=== PATIENT | male | born 1995 | race Caucasian/White ===

== ENCOUNTER 2019-11-03 16:48 | Emergency (ER) | payer BC, OTHER ==
[2019-11-03] MEDS ORDERED: Lidocaine 1% 10 ML MDV INJECT ONE (17:14)
[2019-11-03] MEDS ORDERED: Diphtheria,Pertussis(Acell),Tetanus Vaccine 0.5 ML Syringe IM ONE (17:23)
--- NOTE | 2019-11-03 18:48 | EDM.PDOC ---
ED HPI GENERAL MEDICAL PROBLEM - General Chief Complaint: Laceration Stated Complaint: LEG LAC Time Seen by Provider: 11/03/19 17:06 Source of Information: Reports: Patient History Limitations: Reports: No Limitations - History of Present Illness INITIAL COMMENTS - FREE TEXT/NARRATIVE: Patient is a 24-year-old male who presents with complaints of 2 lacerations to his leg directly above the knee. States he was working with a chainsaw and the chain came off and hit him in the leg. He is not sure when his last tetanus vaccination was. Left Upper Leg Pain Score (Numeric/FACES): 2 - Related Data Allergies Allergy/AdvReac Type Severity Reaction Status Date / Time No Known Allergies Allergy Verified 11/03/19 17:07 Home Meds: Home Meds Lisdexamfetamine [Vyvanse] 50 mg PO DAILY 11/03/19 [History] Past Medical History Psychiatric History: Reports: ADHD - Past Surgical History Musculoskeletal Surgical History: Reports: Arthroscopic Knee Social & Family History - Tobacco Use Smoking Status *Q: Current Every Day Smoker Years of Tobacco use: 1 Packs/Tins Daily: 0.1 - Caffeine Use Caffeine Use: Reports: Coffee, Soda - Recreational Drug Use Recreational Drug Use: No ED ROS GENERAL - Review of Systems Review Of Systems: Comprehensive ROS is negative, except as noted in HPI. ED EXAM, SKIN/RASH Exam: See Below Exam Limited By: No Limitations General Appearance: Alert, WD/WN, No Apparent Distress Respiratory/Chest: No Respiratory Distress, Lungs Clear, Normal Breath Sounds, No Accessory Muscle Use, Chest Non-Tender Cardiovascular: Normal Peripheral Pulses, Regular Rate, Rhythm, No Edema, No Gallop, No JVD, No Murmur, No Rub Skin: Other (2 cm and 1.5 cm parallel lacerations directly above the left knee. No active bleeding. Wounds are slightly gaping.) ED SKIN PROCEDURES - Laceration/Wound Repair Left Upper Leg Appearance: Subcutaneous Anesthetic Type: Local Local Anesthesia - Lidocaine (Xylocaine): 1% Plain Local Anesthetic Volume: 2cc Skin Prep: Chlorhexidine (Hibiciens), Providone-Iodine (Betadine), Saline Exploration/Debridement/Repair: Wound Explored, No Foreign Material Found Closed with: Sutures Lac/Wound length In cm: 3.5 (Total length of 2 lacerations) Suture Size: 4-0 # of Sutures: 5 (Total sutures between 2 lacerations. 3 sutures in the 2 cm laceration and 2 sutures in the 1.5 cm laceration.) Suture Type: Nylon Sterile Dressing Applied: Nurse Tetanus Status Addressed: Yes Complications: No Course - Vital Signs Last Recorded V/S: Last Vital Signs Temp 98.6 F 11/03/19 17:10 Pulse 54 L 11/03/19 17:10 Resp 20 11/03/19 17:10 BP 108/52 L 11/03/19 17:10 Pulse Ox 97 11/03/19 17:10 - Orders/Labs/Meds Orders: Active Orders 24 hr Category Date Time Status Vaccines to be Administered [RC] PER UNIT ROUTINE Care 11/03/19 17:24 Active Meds: Medications Discontinued Medications Generic Name Dose Route Start Last Admin Trade Name Miranda PRN Reason Stop Dose Admin Diphtheria/Tetanus/Acell Pertussis 0.5 ml 11/03/19 17:23 11/03/19 18:11 Adacel IM 11/03/19 17:24 0.5 ml .ONCE ONE Administration Lidocaine HCl 10 ml 11/03/19 17:14 11/03/19 18:11 Xylocaine 1% INJECT 11/03/19 17:15 10 ml ONETIME ONE Administration Departure - Departure Time of Disposition: 18:45 Disposition: Home, Self-Care 01 Condition: Good Clinical Impression: Laceration - Discharge Information *PRESCRIPTION DRUG MONITORING PROGRAM REVIEWED*: No *COPY OF PRESCRIPTION DRUG MONITORING REPORT IN PATIENT NOELLE: No Instructions: Laceration Care, Adult, [id number] Referrals: PCP,None [Primary Care Provider] - Additional Instructions: You were seen in the emergency department today for 2 lacerations to your left leg. The wounds were cleansed and closed with a total of 5 sutures. These should stay intact for 7 days. After that time they may be removed in the clinic by a nurse. Keep the wound clean and dry. Wash with normal soap and water twice daily. Do not submerge the wound in water. Watch for signs of infection including increased redness, swelling, or purulent drainage. If these should occur, you should be seen either in the clinic or in the emergency department as antibiotic treatment may be needed. Your tetanus vaccination was updated today. Return to the ER as needed. Sepsis Event Note (ED) - Evaluation Sepsis Screening Result: No Definite Risk - Focused Exam Vital Signs: Vital Signs Temp Pulse Resp BP Pulse Ox 11/03/19 17:10 98.6 F 54 L 20 108/52 L 97 - My Orders Last 24 Hours: My Active Orders 11/03/19 17:24 Vaccines to be Administered [RC] PER UNIT ROUTINE - Assessment/Plan Last 24 Hours: My Active Orders 11/03/19 17:24 Vaccines to be Administered [RC] PER UNIT ROUTINE
== END 2019-11-03 19:06 | disposition home or self-care (01) ==
LOC: JD.ED 16:48
DX: S81.012A Laceration without foreign body, left knee, initial encounter (principal); F17.210 Nicotine dependence, cigarettes, uncomplicated; Z23 Encounter for immunization; W22.8XXA Striking against or struck by other objects, initial encounter
CPT/HCPCS: 12002; 90471; 90715; 99282; J2001

== ENCOUNTER 2020-09-24 15:31 | Day surgery (SDC) | payer BC, OTHER ==
[2020-09-24] MEDS ORDERED: HYDROmorphone 0.5 MG/0.5 ML Syringe IVPUSH ONE (15:55)
[2020-09-24] MEDS ORDERED: Glucagon,Human Recombinant 1 MG Vial IVPUSH ONE (15:56)
[2020-09-24] MEDS ORDERED: Metoclopramide 10 MG/2 ML SDV IVPUSH ONE (15:56)
--- NOTE | 2020-09-24 15:59 | EDM.PDOC ---
ED HPI GENERAL MEDICAL PROBLEM - General Chief Complaint: ENT Problem Stated Complaint: FB STUCK IN PT THROAT Time Seen by Provider: 09/24/20 15:41 Source of Information: Reports: Patient, Family (mother) History Limitations: Reports: No Limitations - History of Present Illness INITIAL COMMENTS - FREE TEXT/NARRATIVE: 25-year-old male presents he is spitting up all of his saliva since time of injury without blood. Still has pain with attempt to swallow. To the ED with a food bolus stuck in his upper esophagus. He states is a piece of steak. It got stuck around 1330 hrs. today. Patient has a similar occurrence on Mother's Day this year when he was down and [place] and had a female surgeon have to partially remove it and pushed the rest of it down into his stomach. He was told he has some form of polyp or diverticulum at the junction but between his stomach and esophagus i.e. GE junction. He is not aware that he has any problems with reflux esophagitis. He usually cuts his meat up into small pieces and is careful how he eats and drinks. He has had no alcohol today. Onset: Today, Sudden Onset Date: 09/24/20 Onset Time: 13:30 Duration: Hour(s):, Constant Location: Reports: Neck (Food bolus stuck in his upper throat lower neck behind the sternal notch) Quality: Reports: Ache, Pressure Severity: Moderate Improves with: Reports: Rest Worsens with: Reports: Other Context: Reports: Other (Continues occurrence of upper esophageal obstruction by piece of steak while eating at dinnertime today.). Denies: Activity, Exercise (Between a drink or swallow his saliva), Lifting, Sick Contact, Trauma Associated Symptoms: Reports: No Other Symptoms Treatments PEARLER: Reports: Other (see below) (Things will go down.) - Related Data Allergies Allergy/AdvReac Type Severity Reaction Status Date / Time No Known Allergies Allergy Verified 09/24/20 15:38 Home Meds: Home Meds Lisdexamfetamine [Vyvanse] 60 mg PO DAILY 11/03/19 [History] Past Medical History Gastrointestinal History: Reports: Other (See Below) (Patient had an impacted esophageal foreign body in the same area i.e. just below the sternal notch on Mother's Day of this year when he was in [place]. He required EGD at that time to push it down into his stomach) Psychiatric History: Reports: ADHD - Past Surgical History GI Surgical History: Reports: EGD Musculoskeletal Surgical History: Reports: Arthroscopic Knee Social & Family History - Caffeine Use Caffeine Use: Reports: None - Recreational Drug Use Recreational Drug Use: No - Living Situation & Occupation Living situation: Reports: Single Occupation: Employed ED ROS ENT - Review of Systems Review Of Systems: See Below Constitutional: Reports: No Symptoms HEENT: Reports: No Symptoms Respiratory: Reports: No Symptoms Cardiovascular: Reports: No Symptoms Endocrine: Reports: No Symptoms GI/Abdominal: Reports: No Symptoms : Reports: No Symptoms Musculoskeletal: Reports: Back Pain Skin: Reports: No Symptoms (Vaginal low back pain) Neurological: Reports: No Symptoms Psychiatric: Reports: Other (History of her chronic attention deficit disorder with hyperactivity syndrome) Hematologic/Lymphatic: Reports: No Symptoms ED EXAM, ENT - Physical Exam Exam: See Below Exam Limited By: No Limitations General Appearance: Alert, WD/WN, Mild Distress, Other (Temperature is 36.2. Heart rate 55 and sinus respiratory 16 with O2 sats of 98% room air. BP 1 3989) Eye Exam: Bilateral Eye: Normal Inspection (No scleral icterus no blepharal pallor), PERRL Mouth/Throat: Normal Inspection, Normal Gums, Normal Teeth Head: Atraumatic, Normocephalic Neck: Normal Inspection, Supple, Non-Tender, Full Range of Motion. No: Lymphadenopathy (L), Lymphadenopathy (R) Respiratory/Chest: No Respiratory Distress, Lungs Clear, Normal Breath Sounds, No Accessory Muscle Use Cardiovascular: Normal Peripheral Pulses, Regular Rate, Rhythm, No Edema, No Gallop, No Murmur, No Rub GI/Abdominal: Normal Bowel Sounds, Soft, Non-Tender, No Organomegaly, No Abnormal Bruit, No Mass, Pelvis Stable Back: Normal Inspection, Full Range of Motion. No: CVA Tenderness (L), CVA Tenderness (R) Extremities: Normal Inspection, Normal Range of Motion, Non-Tender, No Pedal Edema Neurological: Alert, Oriented, CN II-XII Intact, Normal Cognition Psychiatric: Normal Affect, Normal Mood Skin: Warm, Dry, Intact, Normal Color, No Rash Course - Vital Signs Last Recorded V/S: Last Vital Signs Temp 36.2 C 09/24/20 15:36 Pulse 55 L 09/24/20 15:36 Resp 16 07/12/21 15:36 BP 139/89 09/24/20 15:36 Pulse Ox 98 09/24/20 15:36 - Orders/Labs/Meds Orders: Active Orders 24 hr Category Date Time Status Dextrose 5%-0.9% NaCl [Dextrose 5%-Normal Saline] 1,000 Med 09/24/20 16:00 Active ml IV ASDIRECTED Medication Orders Dextrose/Sodium Chloride (Dextrose 5%-Normal Saline) 1,000 mls @ 200 mls/hr IV ASDIRECTED [facility] Last Admin: 09/24/20 16:17 Dose: 200 mls/hr Documented by: MELISSA Labs: Laboratory Tests 09/24/20 Range/Units 16:20 SARS-CoV-2 RNA (JOHN) Negative (NEGATIVE) Meds: Medications Generic Name Dose Route Start Last Admin Trade Name Freq PRN Reason Stop Dose Admin Dextrose/Sodium Chloride 1,000 mls @ 200 mls/hr 09/24/20 16:00 09/24/20 16:17 Dextrose 5%-Normal Saline IV 200 mls/hr ASDIRECTED ALEC Administration Discontinued Medications Generic Name Dose Route Start Last Admin Trade Name Freq PRN Reason Stop Dose Admin Glucagon 1 mg 09/24/20 15:56 09/24/20 16:40 Glucagon,Human Recombinant 1 Mg Vial IVPUSH 09/24/20 15:57 1 mg ONETIME ONE Administration Hydromorphone HCl 0.5 mg 09/24/20 15:55 09/24/20 16:21 Hydromorphone 0.5 Mg/0.5 Ml Syringe IVPUSH 09/24/20 15:56 0.5 mg ONETIME ONE Administration Metoclopramide HCl 10 mg 09/24/20 15:56 09/24/20 16:17 Metoclopramide 10 Mg/2 Ml Sdv IVPUSH 09/24/20 15:57 10 mg ONETIME ONE Administration - Radiology Interpretation Free Text/Narrative:: 25-year-old male presents to the ED with a piece of steak stuck in his upper esophagus. This started at about 1330 hrs. today while he was eating. He has had a similar occurrence with chicken getting stuck in his upper esophagus on Mother's Day this year. He was down to [place] at that time and had to have an EGD performed to push most of the food bolus down into his stomach. There is a report that he has a polyp or diverticulum at the GE junction. Patient denies having any significant problems with reflux disease. He is in no major discomfort at this time. Plan we will try and ease his discomfort with Dilaudid 0.5 mg IV with Reglan 10 mg IV and give glucagon 20 minutes later to see if it will resolve the food bolus. A COVID-19 screen will be obtained at this time in case he needs to go to surgery. - Re-Assessments/Exams Free Text/Narrative Re-Assessment/Exam: 09/24/20 16:20 patient had no locking regurgitating the food bolus in his esophagus. I will therefore call the on-call surgeon whom is Dr. Martines today to arrange for upper GI endoscopy to remove the food bolus or pushing down into his stomach. 09/24/20 18:08 Dr. Martines is here now as he is out of the operating room. He will see the patient in consultation with a view to take him to the OR shortly. Patient's COVID-19 screen is negative. Departure - Departure Time of Disposition: 18:09 Disposition: DC/Tfer to Critical Access 66 Condition: Fair Clinical Impression: Impacted esophageal foreign body Qualifiers: Encounter type: initial encounter Qualified Code(s): T18.108A - Unspecified foreign body in esophagus causing other injury, initial encounter - Discharge Information *PRESCRIPTION DRUG MONITORING PROGRAM REVIEWED*: Not Applicable *COPY OF PRESCRIPTION DRUG MONITORING REPORT IN PATIENT NOELLE: Not Applicable Sepsis Event Note (ED) - Evaluation Sepsis Screening Result: No Definite Risk - Focused Exam Vital Signs: Vital Signs Temp Pulse Resp BP Pulse Ox 09/24/20 15:36 36.2 C 55 L 16 139/89 98 - My Orders Last 24 Hours: My Active Orders 09/24/20 16:00 Dextrose 5%-0.9% NaCl [Dextrose 5%-Normal Saline] 1,000 ml IV ASDIRECTED - Assessment/Plan Last 24 Hours: My Active Orders 09/24/20 16:00 Dextrose 5%-0.9% NaCl [Dextrose 5%-Normal Saline] 1,000 ml IV ASDIRECTED
[2020-09-24] MEDS ORDERED: Dextrose 5%-0.9% NaCl 1,000 ML IV SCH (16:00)
--- NOTE | 2020-09-24 18:01 | PCM.PREANE ---
Preanesthetic Assessment - Procedure Proposed Procedure: egd with food bolus removeal - Anesthesia/Transfusion/Family Hx Anesthesia History: Prior Anesthesia Without Reaction Family History of Anesthesia Reaction: No Transfusion History: No Prior Transfusion(s) - Review of Systems General: No Symptoms Pulmonary: No Symptoms Cardiovascular: No Symptoms Gastrointestinal: No Symptoms Neurological: No Symptoms Other: Reports: Throat Pain - Physical Assessment NPO Status Date: 09/24/20 NPO Status Time: 13:30 (bite of meat) Vital Signs: Last Vital Signs Temp 97.2 F 09/24/20 15:36 Pulse 55 L 09/24/20 15:36 Resp 16 09/24/20 15:36 BP 139/89 09/24/20 15:36 Pulse Ox 98 09/24/20 15:36 Height: 6 ft 3 in Weight: 81.873 kg ASA Class: 2E Mental Status: Alert & Oriented x3 Airway Class: Mallampati = 1 Dentition: Reports: Normal Dentition Thyro-Mental Finger Breadths: 3 Mouth Opening Finger Breadths: 3 ROM/Head Extension: Full Lungs: Clear to Auscultation, Normal Respiratory Effort Cardiovascular: Regular Rate, Regular Rhythm - Lab Values: Laboratory Last Values SARS-CoV-2 RNA (JOHN) Negative (NEGATIVE) 09/24/20 16:20 - Allergies Allergies/Adverse Reactions: Allergies Allergy/AdvReac Type Severity Reaction Status Date / Time No Known Allergies Allergy Verified 09/24/20 15:38 - Blood Blood Available: No - Acknowledgements Anesthesia Type Planned: General Anesthesia Pt an Appropriate Candidate for the Planned Anesthesia: Yes Alternatives and Risks of Anesthesia Discussed w Pt/Guardian: Yes Pt/Guardian Understands and Agrees with Anesthesia Plan: Yes PreAnesthesia Questionnaire Cardiovascular History: Reports: None Respiratory History: Reports: None Psychiatric History: Reports: ADHD Oncologic (Cancer) History: Reports: None - Past Surgical History GI Surgical History: Reports: EGD Musculoskeletal Surgical History: Reports: Arthroscopic Knee - SUBSTANCE USE Tobacco Use Status *Q: Light Tobacco User Tobacco Use Within Last Twelve Months: Vaping Second Hand Smoke Exposure: No Days Per Week of Alcohol Use: 2 Number of Drinks Per Day: 6 Total Drinks Per Week: 12 Recreational Drug Use History: No - HOME MEDS Home Medications: Home Meds Lisdexamfetamine [Vyvanse] 60 mg PO DAILY 11/03/19 [History] - CURRENT (IN HOUSE) MEDS Current Meds: Current Medications Dextrose/Sodium Chloride (Dextrose 5%-Normal Saline) 1,000 mls @ 200 mls/hr IV ASDIRECTED [facility] Last Admin: 09/24/20 16:17 Dose: 200 mls/hr Documented by: Discontinued Medications Glucagon (Glucagon,Human Recombinant 1 Mg Vial) 1 mg IVPUSH ONETIME ONE Stop: 09/24/20 15:57 Last Admin: 09/24/20 16:40 Dose: 1 mg Documented by: Hydromorphone HCl (Hydromorphone 0.5 Mg/0.5 Ml Syringe) 0.5 mg IVPUSH ONETIME ONE Stop: 09/24/20 15:56 Last Admin: 09/24/20 16:21 Dose: 0.5 mg Documented by: Metoclopramide HCl (Metoclopramide 10 Mg/2 Ml Sdv) 10 mg IVPUSH ONETIME ONE Stop: 09/24/20 15:57 Last Admin: 09/24/20 16:17 Dose: 10 mg Documented by:
[2020-09-24] MEDS ORDERED: Midazolam 1 MG/ML 2 ML SDV ONE (18:05)
[2020-09-24] MEDS ORDERED: Propofol 200 MG/20 ML SDV ONE (18:05)
[2020-09-24] MEDS ORDERED: Lidocaine 1% 4 ML ONE (18:05)
[2020-09-24] MEDS ORDERED: fentaNYL 100 MCG/2 ML SDV ONE (18:06)
[2020-09-24] MEDS ORDERED: Succinylcholine/Sod PF 100 MG/5 ML SYRINGE IV ONE (18:07)
--- NOTE | 2020-09-24 18:24 | PCM.CONS ---
H&P History of Present Illness - General Date of Service: 09/24/20 Admit Problem/Dx: esophageal food bolus Source of Information: Patient History Limitations: Reports: No Limitations - History of Present Illness Initial Comments - Free Text/Narative: Patient had history of esophageal food bolus in july 2020 where a chicken got stuck and has to undergo EGD with disimpaction in [place]. Today at 1330 he as eating steak in a hurry and did not chew it well and it got stuck in his esophagus again. Medical therapies have failed to relieve her symptoms. I was asked to intervene. Onset of Symptoms: Reports: Today Duration of Symptoms: Reports: Hour(s): (4), Constant Location: Reports: Neck Quality: Reports: Other Severity: Mild Improves with: Reports: None Worsens with: Reports: None - Related Data Allergies/Adverse Reactions: Allergies Allergy/AdvReac Type Severity Reaction Status Date / Time No Known Allergies Allergy Verified 09/24/20 15:38 Home Medications: Home Meds Lisdexamfetamine [Vyvanse] 60 mg PO DAILY 11/03/19 [History] Past Medical History Cardiovascular History: Reports: None Respiratory History: Reports: None Gastrointestinal History: Reports: Other (See Below) (Patient had an impacted esophageal foreign body in the same area i.e. just below the sternal notch on Mother's Day of this year when he was in [place]. He required EGD at that time to push it down into his stomach) Psychiatric History: Reports: ADHD Oncologic (Cancer) History: Reports: None - Past Surgical History GI Surgical History: Reports: EGD Musculoskeletal Surgical History: Reports: Arthroscopic Knee Social & Family History - Tobacco Use Tobacco Use Status *Q: Light Tobacco User Second Hand Smoke Exposure: No - Caffeine Use Caffeine Use: Reports: None - Alcohol Use Days Per Week of Alcohol Use: 2 Number of Drinks Per Day: 6 Total Drinks Per Week: 12 - Recreational Drug Use Recreational Drug Use: No - Living Situation & Occupation Living situation: Reports: Single Occupation: Employed H&P Review of Systems - Review of Systems: Review Of Systems: See Below General: Reports: No Symptoms HEENT: Reports: No Symptoms Pulmonary: Reports: No Symptoms Cardiovascular: Reports: No Symptoms Gastrointestinal: Reports: Other (food impaction in the past) Genitourinary: Reports: No Symptoms Musculoskeletal: Reports: No Symptoms Skin: Reports: No Symptoms Psychiatric: Reports: No Symptoms Neurological: Reports: No Symptoms Hematologic/Lymphatic: Reports: No Symptoms Immunologic: Reports: No Symptoms Exam - Exam Exam: See Below - Vital Signs Vital Signs: Last Vital Signs Temp 97.2 F 09/24/20 15:36 Pulse 55 L 09/24/20 15:36 Resp 16 09/24/20 15:36 BP 139/89 09/24/20 15:36 Pulse Ox 98 09/24/20 15:36 Weight: 81.873 kg - Exam General: Alert, Oriented, Cooperative Neck: Other (no crepitus) Lungs: Clear to Auscultation, Normal Respiratory Effort Cardiovascular: Regular Rate, Regular Rhythm, Normal S1, Normal S2 - Patient Data Lab Results Last 24 hrs: Laboratory Results - last 24 hr 09/24/20 Range/Units 16:20 SARS-CoV-2 RNA (JOHN) Negative (NEGATIVE) Sepsis Event Note - Evaluation Sepsis Screening Result: No Definite Risk - Focused Exam Vital Signs: Vital Signs Temp Pulse Resp BP Pulse Ox 09/24/20 15:36 97.2 F 55 L 16 139/89 98 Consult PN Assessment/Plan Procedures: Procedures EMERGENCY DEPT VISIT (11/03/19) IMMUNIZATION ADMIN (11/03/19) RPR S/N/AX/GEN/TRNK2.6-7.5CM (11/03/19) TDAP VACCINE 7 YRS/> IM (11/03/19) Problem List Initiated/Reviewed/Updated: No My Orders Last 24 Hours: My Active Orders 09/24/20 18:13 Schedule Procedure [COMM] Routine Plan: Patient has esophageal food impaction. Failed medical management. I recommended EGD with disimpaction, possible dilation. We discussed risks, benefits and alternatives. Specific risks include bleeding and perforation. I discussed with the patient to watch for these. Patient verbalized understanding. If the patient tolerates fluid post operatively, he will be discharged to home.
[2020-09-24] MEDS ORDERED: Ondansetron 4 MG/2 ML SDV ONE (18:32)
[2020-09-24] MEDS ORDERED: Ondansetron 4 MG/2 ML SDV IVPUSH PRN (18:33)
[2020-09-24] MEDS ORDERED: fentaNYL 100 MCG/2 ML SDV IVPUSH PRN (18:33)
[2020-09-24] MEDS ORDERED: HYDROmorphone 0.5 MG/0.5 ML Syringe IVPUSH PRN (18:33)
[2020-09-24] MEDS ORDERED: Lactated Ringers 1,000 ML ONE (18:34)
--- NOTE | 2020-09-24 19:00 | PCM.POSTAN ---
POST ANESTHESIA ASSESSMENT - MENTAL STATUS Mental Status: Alert, Oriented - VITAL SIGNS Vital Signs: Last Vital Signs Temp 97.2 F 09/24/20 15:36 Pulse 55 L 09/24/20 15:36 Resp 16 09/24/20 15:36 BP 139/89 09/24/20 15:36 Pulse Ox 98 09/24/20 15:36 1853 140/87 100% 80 12 98.1 - RESPIRATORY Respiratory Status: Respiratory Rate WNL, Airway Patent, O2 Saturation Stable, Supplemental Oxygen - CARDIOVASCULAR CV Status: Pulse Rate WNL, Blood Pressure Stable - GASTROINTESTINAL GI Status: No Symptoms - PAIN Pain Score: 0 - POST OP HYDRATION Hydration Status: Adequate & Stable
--- NOTE | 2020-09-24 19:09 | PCM48HPAN ---
Post Anesthesia Note - EVALUATION WITHIN 48HRS OF ANESTHETIC Vital Signs in Normal Range: Yes Patient Participated in Evaluation: Yes Respiratory Function Stable: Yes Airway Patent: Yes Cardiovascular Function Stable: Yes Hydration Status Stable: Yes Pain Control Satisfactory: Yes Nausea and Vomiting Control Satisfactory: Yes Mental Status Recovered: Yes Vital Signs: Last Vital Signs Temp 98.1 F 09/24/20 19:05 Pulse 68 09/24/20 19:05 Resp 14 09/24/20 19:05 BP 123/59 L 09/24/20 19:05 Pulse Ox 100 09/24/20 19:05 rests. mom with. very appreciative.
--- NOTE | 2020-09-24 19:24 | PROC ---
DATE OF OPERATION: 09/24/2020 SURGEON: Domonique Martines MD PREOPERATIVE DIAGNOSIS: Esophageal food impaction. POSTOPERATIVE DIAGNOSES: 1. Esophageal food impaction with steak in the distal esophagus at 38 to 40 cm. 2. Edema at the gastroesophageal junction. 3. Gastritis, localized in the antrum. 4. Duodenitis in the first portion of duodenum. OPERATION PERFORMED: Esophagogastroduodenoscopy with food disimpaction and biopsies. ANESTHESIA: General anesthesia. COMPLICATIONS: None. ESTIMATED BLOOD LOSS: Minimal. INDICATION AND CONSENT: Mr. Thomason is a 25-year-old male who has prior history of esophageal food impaction in July and underwent EGD with disimpaction at that time. The patient had a piece of steak today that could not enter the stomach. The patient was unable to tolerate fluids. Medical management failed; therefore, was asked to see the patient. I recommended EGD with disimpaction, possible dilation. We discussed risks, benefits, and alternatives, and informed consent was obtained. DESCRIPTION OF PROCEDURE: The patient was taken to the procedure room, placed in left lateral decubitus position. General anesthesia was induced. The patient was turned to left lateral decubitus position. A time-out was performed. We began the procedure. Scope was placed into the mouth and taken down. Proximal and mid esophagus were normal in appearance. In the distal esophagus, there was an obvious food bolus that was not passing. A 3-prong forceps was used to retrieve the food bolus in one pass. There were no signs of injury to the mucosa during the retrieval process. Then we entered the stomach and took the scope all the way to the second portion of duodenum. The second portion of duodenum was normal. The first portion of duodenum had duodenitis marked by a small area of superficial erosions. Biopsies were taken with cold forceps. The antrum also had some localized gastritis marked by areas of erythema. Biopsies were taken here to rule out H pylori. On retroflexion, there was no hiatal hernia. I went back to the GE junction. There were some areas of edema in the GE junction. These were biopsied. Then, we biopsied the distal esophagus at the site of food impaction with cold forceps. EBL was minimal at this point. Once this was done, air was suctioned from the stomach. The procedure was concluded. The patient will be allowed to return home if he tolerates fluids and follow up in clinic in 2 weeks. MMODAL /[id number] PAO
== END 2020-09-24 19:50 | disposition home or self-care (01) ==
LOC: JD.ED 15:31 → JD.SDS 17:48
PROVIDERS: ATTEND Surgery
DX: K20.0 Eosinophilic esophagitis (principal); T18.128A Food in esophagus causing other injury, initial encounter; K29.90 Gastroduodenitis, unspecified, without bleeding; K26.9 Duodenal ulcer, unspecified as acute or chronic, without hemorrhage or perforation; F31.89 Other bipolar disorder; K31.89 Other diseases of stomach and duodenum; F17.290 Nicotine dependence, other tobacco product, uncomplicated; Z01.812 Encounter for preprocedural laboratory examination; Z20.822 Contact with and (suspected) exposure to COVID-19
CPT/HCPCS: 43239; 43247; 87635; 96374; 96375; 99284; J0330; J1170; J1610; J2250; J2405; J2704; J2765; J3010; J7042; J7120; 00731; 99140; 99285; U0002